=== PATIENT | male | born 1970 | race Caucasian/White ===

== ENCOUNTER 2016-09-08 12:23 | Day surgery (SDC) | payer OTHER ==
[~2016-09-08] VITALS: Ht 157.5 cm; Wt 82.5 kg
[~2016-09-08 12:23] MED LIST: ASPI325T95 PO; ATOR80TA75 PO; BENA40TA54 PO; ESOM20CA PO; GEMF600T PO; GLIP-95 PO; HYDR12.58 PO; METF1000 PO; METO-53 PO
[2016-09-08] MEDS ORDERED: LIDOCAINE 4% SOLUTION 50 ML BTL ONE (13:04)
[2016-09-08 13:15] VITALS: Ht 157.5 cm; Wt 82.5 kg
[2016-09-08 13:20] VITALS: BP 156/81; PULSE 98; RESP 19
[2016-09-08] MEDS ORDERED: GLIM2TAB PO (13:29)
[2016-09-08] MEDS ORDERED: PANT40TA4 PO (13:29)
[2016-09-08] MEDS ORDERED: METF500T PO (13:29)
[2016-09-08] MEDS ORDERED: METO100T2 PO (13:29)
[2016-09-08] MEDS ORDERED: GEMF600T60 PO (13:29)
[2016-09-08] MEDS ORDERED: FENTAnyl 50 MCG/ML VIAL ONE (13:50)
[2016-09-08] MEDS ORDERED: MIDAZOLAM 1 MG/ML 2 ML INJ ONE ×2 (13:50)
--- NOTE | 2016-09-08 16:30 | GILP ---
DATE OF PROCEDURE: 09/08/2016 PREOPERATIVE DIAGNOSIS: Occult bleeding. The patient had coronary artery stent placed and H and P had to be corrected as he gave wrong information. At present, patient is undergoing upper endoscopy , colonoscopy later with anesthesia. POSTOPERATIVE DIAGNOSIS: Normal. PROCEDURE DONE: Esophagogastroduodenoscopy and biopsy for H. pylori. SURGEON: Latisha Zafar MD DESCRIPTION OF PROCEDURE: The patient was put in left lateral decubitus after obtaining informed co nsent. He was sedated, monitored, with 100 mcg of fentanyl and 3 mg IV Versed. The posterior phary nx anesthetized with 4% Xylocaine. Very carefully advanced Olympus video upper endoscope in the eso phagus, stomach and duodenum up to second part. Essentially normal esophagus. Normal stomach inclu ding the retroflexion. Fundus, body and antrum normal. Pyloric channel easily entered. Duodenal b ulb and first and second part normal. Scope was withdrawn back into the stomach. Random biopsy done just to make certain he has no H. pylori. Then the scope was withdrawn. The pat ient had no complication. Plan will be to await for biopsy report. Meanwhile, arrange him for colonoscopy with anesthesia bec ause of coronary artery disease as outpatient for his occult bleeding. He will resume his aspirin t omorrow. Dictated By: LATISHA SAUCEDO/SHEY Conf#: [id number] DID#: [id number] CC: HARRIET HSIEH MD; LATISHA ZAFAR M.D.;*EndCC*
== END 2016-09-08 15:26 | disposition home or self-care (01) ==
LOC: GIL 12:23
PROVIDERS: ATTEND Internal Medicine
DX: K29.30 Chronic superficial gastritis without bleeding (principal); B96.81 Helicobacter pylori [H. pylori] as the cause of diseases classified elsewhere; D50.9 Iron deficiency anemia, unspecified; R19.5 Other fecal abnormalities; I10 Essential (primary) hypertension; E11.9 Type 2 diabetes mellitus without complications; E78.5 Hyperlipidemia, unspecified; I25.2 Old myocardial infarction; Z79.82 Long term (current) use of aspirin; Z82.49 Family history of ischemic heart disease and other diseases of the circulatory system; Z82.3 Family history of stroke
CPT/HCPCS: 43239; 82962; 88305; 88312; J2250; J3010; Z7610

== ENCOUNTER 2017-08-30 07:21 | Day surgery (SDC) | END 2017-08-30 13:00 | disposition home or self-care (01) ==